=== PATIENT | male | born 1950 | race Caucasian/White ===

== ENCOUNTER 2019-12-28 17:03 | Emergency (ER) | payer OTHER, BC ==
[~2019-12-28] VITALS: Ht 180.3 cm; Wt 77.1 kg
[~2019-12-28 17:03] MED LIST: ASCO500T20 PO; CALC-823 PO; CARB-61 PO; CLON1TAB12 PO; GABA-531 PO; GLUC-194 PO; MVI; PRO40 PO; RITALIN; SER25 PO; TAMS-11 PO
[2019-12-28 17:17] VITALS: BP_SYST 128
--- NOTE | 2019-12-28 17:40 | NUR ---
Patient to ER bed 01 to gown for evaluation. Side rails up.
[2019-12-28 18:03] LABS: BASOPHILS % (AUTO) 0.1 % (0.0-2.0); EOSINOPHILS % (AUTO) 0.1 % (0.0-4.0); HEMATOCRIT 41.6 % (36-54); HEMOGLOBIN 13.9 g/dL (14.0-18.0); LYMPHOCYTES # (AUTO) 0.3 K/uL (1.0-5.5); LYMPHOCYTES % (AUTO) 3.3 % (20.5-51.5); MEAN CORPUSCULAR HEMOGLOBIN 34 pg (27-31); MEAN CORPUSCULAR HGB CONC 34 % (32-36); MEAN CORPUSCULAR VOLUME 102 fL (79.0-98.0); MONOCYTES # (AUTO) 0.8 K/uL (0.0-1.0); MONOCYTES % (AUTO) 8.1 % (1.7-9.3); NEUTROPHILS # (AUTO) 8.5 K/uL (1.8-7.7); NEUTROPHILS % (AUTO) 88.4 % (40.0-70.0); PLATELET COUNT (AUTO) 236 K/uL (130-430); RED BLOOD CELL COUNT(AUTO) 4.07 MIL/uL (4.2-6.2); RED CELL DISTRIBUTION WIDTH 13.5 % (9.0-15.0); WHITE BLOOD COUNT (AUTO) 9.6 K/uL (4.8-10.8)
--- NOTE | 2019-12-28 18:05 | NUR ---
RESP UNLABORED, SKIN WARM AND DRY. NO DISTRESS. CONFUSED, UNABLE TO ANSWER QUESTIONS AWAITING MEDICAL CLEARANCE.
--- NOTE | 2019-12-28 18:15 | NUR ---
TOLEATING FOUR POINT RESTRAINES, DECREASED RESTLESSNESS. CIRCULATION INTACT ALL 4 EXT/CAP REFILL <3 SECS, PULSES PALPABLE. RESP UNLABORED,
--- NOTE | 2019-12-28 18:16 | NUR ---
X-ray done at bedside as ordered by Dr. Wood. Patient tolerated the procedure well.
[2019-12-28 18:32] LABS: ANION GAP 8 (5-15); CALCIUM 9.1 mg/dL (8.4-11.0); CHLORIDE 103 mmol/L (98-107); CREATININE 1.17 mg/dL (0.55-1.30); GLUCOSE 100 mg/dL (70-99); POTASSIUM 3.6 mmol/L (3.5-5.1); SODIUM SERUM 139 mmol/L (136-145); UREA NITROGEN, BLOOD 25 mg/dL (8-21)
[2019-12-28 18:37] LABS: ALANINE AMINOTRANSFERASE 19 U/L (12-78); ALBUMIN 3.5 g/dL (3.4-4.8); ASPARTATE AMINOTRANSFERASE 121 U/L (10-37); CHOLESTEROL 140 mg/dL (<200); HDL CHOLESTEROL 57 mg/dL (>45); LDL CHOLESTEROL 69 mg/dL (<100); TOTAL BILIRUBIN 1.4 mg/dL (0.0-1.0); TRIGLYCERIDES 57 mg/dL (30-150)
[2019-12-28 19:01] LABS: ALCOHOL, BLOOD < 3 mg/dL (<10)
[2019-12-28 19:19] LABS: ACETAMINOPHEN < 1 ug/mL (1-30)
--- NOTE | 2019-12-28 19:21 | NUR ---
STRAIGHT CATH TOLERATED WELL. BASILIA CLEAR URINE OBTAINED AND SENT TO LAB
[2019-12-28 19:24] LABS: BILIRUBIN,URINE NEGATIVE (NEGATIVE); BLOOD, URINE NEGATIVE (NEGATIVE); CLARITY/URINE CLEAR (CLEAR); COLOR,URINE ORANGE (YELLOW); GLUCOSE,URINE NEGATIVE (NEGATIVE); KETONES,URINE TRACE (NEGATIVE); LEUKOCYTE ESTERASE ,URINE NEGATIVE (NEGATIVE); NITRITE, URINE NEGATIVE (NEGATIVE); PH,URINE 5.5 (5.0-8.0); PROTEIN URINE NEGATIVE (NEGATIVE); UROBILINOGEN,URINE 0.2 (0.2-1.0)
[2019-12-28 19:41] LABS: BARBITURATE, URINE NEGATIVE (NEG <=200); BENZODIAZEPINE, URINE NEGATIVE (NEG <=150); CANNABINOID, URINE NEGATIVE (NEG <=50); COCAINE, URINE NEGATIVE (NEG <=150); METHAMPHETAMINES SCREEN,URINE NEGATIVE (NEG <=500); OPIATE, URINE NEGATIVE (NEG <=100); PHENCYCLIDINE SCREEN,URINE NEGATIVE (NEG <=25); UR TRICYCLIC ANTIDEPRESSANTS NEGATIVE (NEG <=300); URINE AMPHETAMINE NEGATIVE (NEG <=500); URINE METHADONE NEGATIVE (NEG <=200); URINE OXYCODONE SCREEN NEGATIVE (NEG <=100); URINE PROPOXYPHENE SCREEN NEGATIVE (NEG <=300)
--- NOTE | 2019-12-28 20:14 | NUR ---
MEDICALLY CLEARED, CALL FOR TRANSPORT MADE. ETA ONE HOUR. PT CALM, ALERT, RESP UNLABORED, NO DISTRESS. FACILITY AWARE OF DISCHARGE
--- NOTE | 2019-12-28 20:43 | NUR ---
REPORT TO STAFF MEMBER AT [facility]
--- NOTE | 2019-12-28 21:30 | NUR ---
CT HEAD COMPLETED
--- NOTE | 2019-12-28 21:44 | NUR ---
Patient to be transferred to [facility]. Is being transferred due to higher level of care. Receiving facility has accepting physician MARTINEZ and available space. ER physician has signed transfer form. Patient or responsible alliance party has agreed to transfer and signed form. Patient belongings inventoried and will be sent with patient. Copy of nursing notes, lab reports, EKG, Physicians Orders and X-rays to be sent with patient. Report called to at receiving facility. Receiving physician is MARTINEZ ambulance service has been called for transfer. ETA is NOW
[2019-12-28 21:47] VITALS: BP_SYST 148
== END 2019-12-28 21:47 ==
LOC: SED 17:03
DX: R45.1 Restlessness and agitation (principal); F03.90 Unspecified dementia, unspecified severity, without behavioral disturbance, psychotic disturbance, mood disturbance, and anxiety; Z91.81 History of falling; Z88.0 Allergy status to penicillin; Z79.899 Other long term (current) drug therapy
CPT/HCPCS: 36415; 70450; 72170; 80053; 80061; 80307; 81003; 83036; 85025; 87081; 99285; G0480; G0481; G0482